=== PATIENT | female | born 1985 | race Caucasian/White ===

== ENCOUNTER 2023-09-06 07:42 | Emergency (ER) | payer SELFPAY ==
[2023-09-06 07:50] VITALS: BP 121/80
--- NOTE | 2023-09-06 08:06 | ED.GENMED ---
History of Present Illness
General
Chief Complaint: Blood and Body Fluid Exposure
Time Seen by Provider: 09/06/23 07:55
Travel History
Have you had any contact with someone who has COVID-19?: No
Do you have any symptoms of coronavirus? Fever > 100 degrees, chills, cough, shortness of breath, sore throat, loss of taste or smell, muscle aches, or headache?: No
History of Present Illness
History of Present Illness:
38-year-old female presents due to a potential blood-borne pathogen exposure. 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 No known infections from the
source patient
Past History
Past History
ED Past Medical History: None
ED Past Surgical History: None
Social History
Tobacco: Non-smoker
Alcohol: None
Drug: None
Review of Systems
Review of Systems
Allergies reviewed?: Yes
All Other Systems: ROS reviewed and negative except as documented in HPI and ROS
Phy Exam
Physical Exam
Physical Exam:
GEN: Well appearing, NAD, WDWN
HEENT: Oral mucosa moist, no scleral icterus
Cardiac: Regular rate
Lung: No respiratory distress, no tachypnea
MSK: No gross deformity or injuries
Skin: Good color, no pallor or jaundice, no rashes. Faint puncture wound to the right index finger pad
Neuro: AO x3, moves all extremities freely
Psych: Calm, cooperative
Course
Orders/Labs/Results
Orders:
Orders
09/06/23 07:55
Pt has had a significant HIV exposure? Routine
HIV Exposure is significant?: No
09/06/23 08:07
HIV Combo Urgent
Hepatitis B Surface Antibody Urgent
Hepatitis B Surface Antigen Urgent
Hepatitis C Antibody Urgent
Vital Signs
Initial and Last Documented VS:
Initial Vital Signs
Temp Pulse Resp BP Pulse Ox
98.8 F 84 17 121/80 98
09/06/23 07:50 09/06/23 07:50 09/06/23 07:50 09/06/23 07:50 09/06/23 07:50
Last Documented Vital Signs
Temp Pulse Resp BP Pulse Ox
98.8 F 84 17 121/80 98
09/06/23 07:50 09/06/23 07:50 09/06/23 07:50 09/06/23 07:50 09/06/23 07:50
MDM/Problems Addressed
MDM/Problems Addressed:
exposure panel initiated, low risk injury do not see indication for antiretroviral therapy
*Critical Care Note
Total Time (30-74mins, 75-104mins- exclusive of procedures): Not Applicable
ED Attending Note
-
Portions of this chart may have been created with voice recognition software.� Occasional wrong word or��sound alike� substitutions may have occurred due to the inherent limitations of voice recognition software.
Discharge Plan
Departure
Patient Disposition: Home (Routine Discharge)
Date of Disposition: 09/06/23
Time of Disposition: 08:06
Patient with high blood pressure during this ER visit?: No
Discharge Problem:
Needlestick injury accident
Instructions: Blood or body fluid exposure
Prescriptions:
No Action
multivitamin [Multi-Day] 1 EACH tablet
1 ea PO DAILY
amoxicillin [Amoxil] 875 MG tablet
875 mg PO TID
Patient Comments:
dental procedure
metformin 1,000 MG tablet
1,000 mg PO BID
Patient Comments:
for polycystic ovary not DM
ibuprofen 600 MG tablet
600 mg PO QID
Stand Alone Forms: Bl/Fluid Consent/Declination, Blood Body/Fluid Exposure
Interventions
Interventions:
*Nursing Disposition Last Done: 09/06/23 08:23
Discharge Date and Time
Discharge Date/Time: 09/06/23 08:24
Print Language: CONGOLESE
[2023-09-07 18:49] LABS: Hepatitis B Surface Antigen Negative (Negative)
[2023-09-07 19:07] LABS: Hepatitis B Surface Antibody Positive; Hepatitis C Antibody Negative (Negative)
[2023-09-08 11:54] LABS: HIV Combo Negative (Negative)
== END 2023-09-06 08:24 | disposition home or self-care (01) ==
LOC: EMR 07:42
PROVIDERS: Physician Assistant; EMERGENCY PHYSICIAN Emergency Medicine; FAMILY PHYSICIAN Physician Assistant
DX: S61.230A Puncture wound without foreign body of right index finger without damage to nail, initial encounter (principal); Z77.21 Contact with and (suspected) exposure to potentially hazardous body fluids; W46.1XXA Contact with contaminated hypodermic needle, initial encounter; Y93.89 Activity, other specified; Y92.238 Other place in hospital as the place of occurrence of the external cause; Y99.0 Civilian activity done for income or pay
CPT/HCPCS: 99283; 86706; 86803; 87340; 87389